=== PATIENT | female | born 1990 | race American Indian/Alaskan Native ===

== ENCOUNTER 2017-12-30 16:56 | Emergency (ER) | payer MEDICAID ==
[2017-12-30] MEDS ORDERED: PEPCID IV ONE ×2 (17:21→17:22)
[2017-12-30] MEDS ORDERED: NACL 0.9% 1000 ML 1,000 ML IV ONE (17:21)
[2017-12-30] MEDS ORDERED: NACL 0.9% 1000 ML 1,000 ML ONE (17:21)
[2017-12-30] MEDS ORDERED: DECADRON IV ONE (17:21)
[2017-12-30] MEDS ORDERED: BENADRYL IV ONE (17:21)
[2017-12-30] MEDS ORDERED: DECADRON ONE (17:22)
[2017-12-30] MEDS ORDERED: BENADRYL ONE (17:25)
--- NOTE | 2017-12-30 17:28 | Emergency Department Report ---
HPI - General Chief Complaint: Allergic Reaction Time Seen by Provider: 12/30/17 17:20 - HPI HPI: Room 24 The patient is a 27-year-old female presents with the chief complaint of allergic reaction. The patient states she was stung on her left ankle by a wasp prior to arrival. The patient states she then began itching and swelling around her eyes and an urticarial rash. Patient states she's never been stung by wasp before but she has had a similar response in the past to eating a peanut butter Pop Tart Location: [See above] Duration: [See above] Quality: Pruritic Severity: [See above] Modifying factors: [see above] Context: [see above] Mode of transportation: [not driving] ED Past Medical Hx - Past Medical History Previous Medical History?: No - Surgical History Past Surgical History?: No - Family History Family history: no significant - Social History Smoking Status: Never Smoker Substance Use Type: None - Medications Home Medications: Home Medications Medication Instructions Recorded Confirmed Last Taken Type EPINEPHrine [Epipen 2-Tian] 0.3 mg IM ONCE PRN #0.6 ml 12/30/17 Unknown Rx Famotidine [Pepcid] 20 mg PO BID #6 tablet 12/30/17 Unknown Rx Prednisone [predniSONE 10 mg 10 mg PO .TAPER #1 tab.ds.pk 12/30/17 Unknown Rx (6-Day Pack, 21 Tabs)] diphenhydrAMINE [Benadryl CAP] 50 mg PO Q6HR #24 capsule 12/30/17 Unknown Rx ED Review of Systems ROS: Stated complaint: WASP STING/PAIN Other details as noted in HPI Constitutional: no symptoms reported Eyes: other (periorbital swelling) Respiratory: no symptoms reported Cardiovascular: denies: chest pain Skin: rash, pruritus Physical Exam - Physical Exam Vital Signs: Vital Signs 12/30/17 17:03 Temperature 98.3 F Pulse Rate 148 H Respiratory 24 Rate Blood Pressure 123/94 O2 Sat by Pulse 98 Oximetry Vital Signs 12/30/17 12/30/17 12/30/17 17:03 17:15 17:20 Temperature 98.3 F Pulse Rate 148 H 142 H 155 H Respiratory 24 25 H 26 H Rate Blood Pressure 123/94 Blood Pressure 129/92 [Right] O2 Sat by Pulse 98 92 94 Oximetry 12/30/17 12/30/17 17:30 18:00 Temperature Pulse Rate 153 H 92 H Respiratory 22 17 Rate Blood Pressure Blood Pressure 137/84 [Right] O2 Sat by Pulse 94 96 Oximetry Physical Exam: GENERAL: The patient is well-developed well-nourished female lying on stretcher with obvious periorbital edema scratching. [] HEENT: Normocephalic. Atraumatic. Extraocular motions are intact. Periorbital edema NECK: Supple. There is no stridor CHEST/LUNGS: Clear to auscultation. There is no respiratory distress noted. HEART/CARDIOVASCULAR: Regular. There is tachycardia. There is no gallop rub or murmur. ABDOMEN: Abdomen is soft, nontender. Patient has normal bowel sounds. There is no abdominal distention. SKIN: There is an urticarial rash over the thorax. There is periorbital edema. There is no diaphoresis. No evidence of stinger seen on examination of left ankle NEURO: The patient is awake, alert, and oriented. The patient is cooperative. The patient has normal speech MUSCULOSKELETAL: There is no evidence of acute injury. ED Course Vital Signs 12/30/17 17:03 Temperature 98.3 F Pulse Rate 148 H Respiratory 24 Rate Blood Pressure 123/94 O2 Sat by Pulse 98 Oximetry - Reevaluation(s) Reevaluation #1: 12/30/17 18:15 Patient much improved state she still has slight itching. Patient states she never felt as though her throat was closing. No shortness of breath ED Medical Decision Making - Differential Diagnosis acute allergic reaction Critical care attestation.: If time is entered above; I have spent that time in minutes in the direct care of this critically ill patient, excluding procedure time. ED Disposition Clinical Impression: Acute allergic reaction Disposition: DC-01 TO HOME OR SELFCARE Is pt being admited?: No Does the pt Need Aspirin: No Condition: Stable Instructions: Urticaria (ED), Anaphylaxis (ED) Additional Instructions: Return to the emergency department immediately should you develop worsening symptoms, fever, inability to tolerate food or liquid or any other concerns. 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 Please follow up with her for further evaluation) Time of Disposition: 18:19
[2017-12-30 18:29] VITALS: BP 129/92
[2017-12-30] MEDS ORDERED: ALUM-MAG HYDROX-SIMETH 200-200-20MG/5ML ONE (18:35)
[2017-12-30] MEDS ORDERED: ALUM-MAG HYDROX-SIMETH 200-200-20MG/5ML PO ONE (18:36)
== END 2017-12-30 18:39 | disposition home or self-care (01) ==
LOC: EDBD → ED 16:56
DX: T78.40XA Allergy, unspecified, initial encounter (principal); X58.XXXA Exposure to other specified factors, initial encounter
CPT/HCPCS: 96361; 96374; 96375; 99283; J1100; J1200; J7030